=== PATIENT | female | born 1990 | race Caucasian/White ===

== ENCOUNTER 2016-05-10 18:23 | Emergency (ER) | payer OTHER ==
[~2016-05-10] VITALS: Ht 154.9 cm; Wt 46.0 kg
[2016-05-10 18:28] VITALS: TEMP 37.4; Ht 154.9 cm; Wt 46.0 kg
[2016-05-10] MEDS ORDERED: ACETAMINOPHEN 500 MG TAB PO STA (19:18)
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
[2016-05-10 20:11] VITALS: BP 106/70; PULSE 90; O2SAT 100
== END 2016-05-10 20:12 | disposition home or self-care (01) ==
LOC: C.EDD 18:25
DX: R51 Headache (principal); M54.2 Cervicalgia; V47.5XXA Car driver injured in collision with fixed or stationary object in traffic accident, initial encounter; F32.9 Major depressive disorder, single episode, unspecified; F17.210 Nicotine dependence, cigarettes, uncomplicated; Z80.9 Family history of malignant neoplasm, unspecified; Z82.49 Family history of ischemic heart disease and other diseases of the circulatory system

== ENCOUNTER 2017-01-10 16:51 | Emergency (ER) | payer OTHER ==
[~2017-01-10] VITALS: Ht 154.9 cm; Wt 45.4 kg
[2017-01-10 17:01] VITALS: TEMP 36.6; Ht 154.9 cm; Wt 45.4 kg
[2017-01-10] MEDS ORDERED: ACET325T96 PO (17:38)
[2017-01-10] MEDS ORDERED: TRAM-10 PO (18:08)
[2017-01-10] MEDS ORDERED: TRAMADOL HCL 50 MG HOME PACK PO ONE (18:15)
[2017-01-10 18:55] VITALS: BP 121/79; PULSE 74; O2SAT 100
--- NOTE | 2017-01-11 21:18 | EMERGENCY ROOM VISIT NOTE ---
ED Visit Note First contact with patient: 17:52 CHIEF COMPLAINT: I have a really bad toothache. HISTORY OF PRESENT ILLNESS: Ms. Verdugo is a 26-year-old white female who ambulates into the complaining of right maxillary dental pain. She reports a remittent, progressive dental pain for the last 4 days over the right maxillary area. The pain is now steady and severe and radiates to the face. She has been using acetaminophen but has had no relief of her discomfort. Currently she is complaining of pain in the area of teeth 4-6. She rates her discomfort 10/10. Her.is pain does radiate through the teeth. Her pain worsens with chewing and hot and cold foods. She has not identified any alleviating factors related to the pain. She denies any associated symptoms including fevers , chills, sweats, facial swelling, sore throat, difficulty swallowing, voice changes, drooling. REVIEW OF SYSTEMS: As noted above in History of Present Illness. 8 body systems were reviewed with this patient and found to be negative unless noted above otherwise. PMH: (1) section (2) Depression (3) Intrauterine device (IUD) contraception (4) Ovarian cyst . CURRENT MEDICATION: Tylenol. . ALLERGIES TO MEDICATION: Patient denies. SOCIAL HISTORY: Patient feels safe in her home environment; she denies tobacco use. PHYSICAL EXAM: Vital Signs: Date Time Temp Pulse Resp B/P (MAP) Pulse Ox O2 Delivery O2 Flow Rate FiO2 01/10/17 18:55 74 20 121/79 100 Room Air 01/10/17 17:01 36.6 103 20 110/76 98 Room Air General: 26 year-old white female in mild distress due to pain, nontoxic appearing, afebrile and hemodynamically stable. Neurological: Awake, alert and oriented to person, place and time. Answering questions appropriately and following commands. Normal gait. Good hand eye coordination. No focal motor or sensory deficits. Skin: Warm, dry and pink. No soft tissue lesions, rashes, or trauma noted. HEENT: Atraumatic and normocephalic. Oral cavity is moist and pink. Airway is patent. Uvula is midline and no abscesses are seen. Speech is normal. No intraoral trauma is noted. There is no obvious signs of dental decay. No abscesses, erythema or edema identified. No cervical or submandibular lymphadenopathy. ED COURSE: Patient is assessed as noted above. Patient's medication list was reviewed. Patient is educated about her findings and instructed on her treatment plan; she verbalizes understanding and agreement with this plan. CLINIC IMPRESSION: Dental pain. DISPOSITION: Patient discharged home in stable condition; prior to departure she was reassessed and subjectively reported she was feeling the same. PLAN: Comfort measures were discussed including a sliding pain scale of ibuprofen, acetaminophen and Ultram; she was given appropriate precautions for medication use and her name was checked in the state database and no red flags were noted. Patient was encouraged to followup with personal dentist for definitive care and treatment. Patient was encouraged to return the ED for facial swelling or fevers or any new /concerning symptoms.
== END 2017-01-10 19:07 | disposition home or self-care (01) ==
LOC: C.EDB 16:53 → C.EDD 19:07
DX: K08.89 Other specified disorders of teeth and supporting structures (principal); F32.9 Major depressive disorder, single episode, unspecified

== ENCOUNTER 2020-08-22 19:09 | Observation (INO) ==
[2020-08-22] MEDS ORDERED: ONDANSETRON INJ 2 MG/ML 2 ML VIAL IV STA (19:27)
[2020-08-22] MEDS ORDERED: FAMOTIDINE 20MG/5ML IV PUSH IV STA (19:27)
[2020-08-22] MEDS ORDERED: SODIUM CHLORIDE 0.9% 1000ML 1,000 ML IV ONE (19:27)
--- NOTE | 2020-08-22 19:44 | Emergency Department Note ---
History of Present Illness General Chief complaint: Abdominal Pain Stated complaint: GALL BLADDER PAIN Time Seen by Provider: 08/22/20 19:21 Source: patient Mode of arrival: ambulatory Limitations: no limitations History of Present Illness Provider complaint: Abdominal pain Onset (ago): day(s) 5 Location: abdomen Radiation: back Severity: severe Pain Consistency: + constant Maximum Pain Intensity: 10 Current Pain Intensity: 10 Quality: + constant Relieved By: + none Exacerbated By: + eating Associated symptoms: + nausea/vomiting; no chest pain, no cough, no fever/chills and no headaches Treatments prior to arrival: none This is a 29-year-old female presents the emergency department complaining of 5 days of right upper quadrant pain. Patient states on Wednesday when this began she had pain as well as nausea and vomiting. She states she came to the emergency room, had blood work drawn, and was discharged. She states she was told to follow-up with her family doctor. States she did contact them for follow-up and they were going to try and schedule an ultrasound for next week. She states her pain has been constant daily, worse with eating, worse with movement. She denies any recurrent vomiting. No black or bloody stools. Denies fevers or chills. States the only prior abdominal surgery she has had has been 2 C- sections. No recent change in diet or medications otherwise. No recent illness. No known sick contacts or exposure to coronavirus. Pt seen during a time of high acuity and national emergency pandemic while wearing PPE. Home Medications Medication Instructions Recorded Confirmed Type omeprazole 20 mg PO DAILY 08/22/20 08/22/20 History Allergies Allergy/AdvReac Type Severity Reaction Status Date / Time No Known Allergies Allergy Unverified 08/22/20 20:36 Past Med/Surg History Medical History Depression Surgical History Previous section Social History Smoking Status: Never smoker Feels Safe at Home: Yes Review of Systems See HPI for pertinent positives & negatives. and A total of 10 systems reviewed and were otherwise negative Physical Exam Vital Signs Vital Signs - 24 hr 08/22/20 19:13 08/22/20 20:11 08/22/20 20:13 Temperature 36.5 C Temperature Source Temporal Artery Scan Pulse Rate 93 H 65 64 Respiratory Rate 18 24 23 Respiratory Effort / Characteristics Non-Labored Spontaneous Respiratory Depth Normal Blood Pressure 121/69 106/58 L Blood Pressure Mean 86 74 Pulse Oximetry 99 97 Oxygen Delivery Method Room Air Sepsis Recent Fever Within 48 Hours No Sepsis New/Unexplained Change in Mental Status N/A Sepsis Action Taken by Nursing No Action Required 08/22/20 20:30 08/22/20 21:00 08/22/20 21:05 Temperature Temperature Source Pulse Rate 72 74 69 Respiratory Rate 20 18 16 Respiratory Effort / Characteristics Respiratory Depth Blood Pressure 102/68 113/75 113/75 Blood Pressure Mean 79 87 87 Pulse Oximetry 98 98 97 Oxygen Delivery Method Sepsis Recent Fever Within 48 Hours Sepsis New/Unexplained Change in Mental Status Sepsis Action Taken by Nursing 08/22/20 21:30 Temperature Temperature Source Pulse Rate 60 Respiratory Rate 16 Respiratory Effort / Characteristics Respiratory Depth Blood Pressure 104/68 Blood Pressure Mean 80 Pulse Oximetry 96 Oxygen Delivery Method Sepsis Recent Fever Within 48 Hours Sepsis New/Unexplained Change in Mental Status Sepsis Action Taken by Nursing GENERAL: alert, uncomfortable appearing, well nourished, no distress, non-toxic EYE EXAM: normal conjunctiva, PERRL and EOM's grossly intact OROPHARYNX: no exudate, no erythema, lips, buccal mucosa, and tongue normal and mucous membranes are moist NECK: supple, no nuchal rigidity, no adenopathy, non-tender LUNGS: Clear to auscultation. Normal chest wall mechanics, no w/r/r HEART: no murmurs, S1 normal and S2 normal ABDOMEN: abdomen soft, RUQ tenderness with palpation, normo-active bowel sounds, no masses, no rebound or guarding. BACK: Back is symmetrical on inspection and there is no deformity, no midline tenderness, no CVA tenderness. SKIN: no rashes and no bruising UPPER EXTREMITIES: upper extremities are grossly normal. FROM, nml pulses b/l. LOWER EXTREMITIES: No pitting edema. FROM, nml pulses b/l. NEURO EXAM: Normal sensorium, cranial nerves II-XII grossly intact, normal speech, no gross weakness of arms, no gross weakness of legs. Gross sensation intact. Course Course 2049: Patient updated on results. Still having right upper quadrant pain. 2053: Case discussed with Dr. Cr, general surgery. 2121: Dr. Cr has seen and evaluated the patient at bedside. Administered Medications Discontinued Medications Famotidine (Famotidine 20mg/5ml Iv Push) 20 mg IV ONE STA Stop: 08/22/20 19:28 Last Admin: 08/22/20 19:47 Dose: 20 mg Documented by: [id number] Fentanyl Citrate (Fentanyl Citrate 100 Mcg/2 Ml Vial) 50 mcg IV NOW STA Stop: 08/22/20 20:52 Last Admin: 08/22/20 20:59 Dose: 50 mcg Documented by: [id number] Sodium Chloride (Nss 1000ml) 1,000 mls @ 999 mls/hr IV .Q1H1M ONE Stop: 08/22/20 20:27 Last Infusion: 08/22/20 20:49 Dose: 0 mls/hr Documented by: [id number] Admin: 08/22/20 19:46 Dose: 999 mls/hr Documented by: [id number] Acetaminophen (Ofirmev) 1,000 mg in 100 mls @ 400 mls/hr IV NOW STA Stop: 08/22/20 21:05 Last Infusion: 08/22/20 21:13 Dose: 0 mls/hr Documented by: [id number] Admin: 08/22/20 20:58 Dose: 400 mls/hr Documented by: [id number] Ondansetron HCl (Ondansetron Inj 2 Mg/Ml 2 Ml Vial) 4 mg IV NOW STA Stop: 08/22/20 19:28 Last Admin: 08/22/20 19:47 Dose: 4 mg Documented by: [id number] Medical Decision Making Differential Diagnosis Differential diagnoses includes but is not limited to gastritis, peptic ulcer disease, GERD, gallbladder disease, pancreatitis, small bowel obstruction, acute coronary syndrome, pericarditis, ischemic bowel, irritable bowel disease, irritable bowel syndrome, appendicitis, diverticulitis, malignancy, hernia, urinary tract infection, torsion, [/ectopic (if female)], perforation, trauma, infectious. Medical Records Attestation: I reviewed the patient's medical records. Home Medications Current Medication List: was personally reviewed by me Laboratory Data Attestation: I reviewed the patient's lab results. Result diagrams: 08/22/20 19:45 08/22/20 19:45 Lab Results 08/22/20 08/22/2021 Range/Units 19:45 19:45 19:45 WBC 10.78 (4.8-10.8) K/uL RBC 4.42 (4.2-5.4) M/uL Hgb 13.2 (12.0-16.0) g/dL Hct 38.6 (37-47) % MCV 87.3 (80-100) fL MCH 29.9 (25-34) pg MCHC 34.2 (32-36) g/dL RDW Std Deviation 42.6 (36.4-46.3) fL RDW Coeff of Reji 13.2 (11.5-14.5) % Plt Count 360 (130-400) K/uL MPV 10.0 (7.4-10.4) fL Immature Gran % (Auto) 0.1 % Neut % (Auto) 59.3 % Lymph % (Auto) 32.4 % Hettinger % (Auto) 6.5 % Eos % (Auto) 1.4 % Baso % (Auto) 0.3 % Neut # (Auto) 6.40 (1.4-6.5) K/uL Lymph # (Auto) 3.49 H (1.2-3.4) K/uL Hettinger # (Auto) 0.70 H (0.11-0.59) K/uL Eos # (Auto) 0.15 (0-0.5) K/uL Baso # (Auto) 0.03 (0-0.2) K/uL Immature Gran # (Auto) 0.01 (0.00-0.02) K/uL PT (9.0-12.0) Seconds INR (0.9-1.1) Sodium 139 (136-145) mmol/L Potassium 3.7 (3.5-5.1) mmol/L Chloride 107 (98-107) mmol/L Carbon Dioxide 27 (21-32) mmol/L Anion Gap 5.0 (3-11) BUN 16 (7-18) mg/dl Creatinine 0.79 (0.6-1.2) mg/dl Est Cr Clr Drug Dosing 80.0 ml/min Est GFR ( Amer) 118.1 Est GFR (Non-Af Amer) 101.9 BUN/Creatinine Ratio 20.3 H (10-20) Glucose 82 (70-99) mg/dl Calcium 8.9 (8.5-10.1) mg/dl Magnesium 2.2 (1.8-2.4) mg/dl Total Bilirubin 0.6 (0.2-1) mg/dl AST 3 L (15-37) U/L ALT 11 L (12-78) U/L Alkaline Phosphatase 66 (45-117) U/L Troponin I < 0.015 (0-0.045) ng/ml Total Protein 7.3 (6.4-8.2) gm/dl Albumin 3.9 (3.4-5.0) gm/dl Globulin 3.4 (2.5-4.0) gm/dl Albumin/Globulin Ratio 1.1 (0.9-2) Lipase 143 (73-393) U/L HCG, Qual Negative (Negative) COVID-19 Eval Order SARS-CoV-2 (PCR) (Negative) Influenza Type A (PCR) (Neg) Influenza Type B (PCR) (Neg) RSV (RT-PCR) (Neg) 08/22/20 08/22/20 08/22/20 Range/Units 21:05 21:05 Unknown WBC (4.8-10.8) K/uL RBC (4.2-5.4) M/uL Hgb (12.0-16.0) g/dL Hct (37-47) % MCV (80-100) fL MCH (25-34) pg MCHC (32-36) g/dL RDW Std Deviation (36.4-46.3) fL RDW Coeff of Reji (11.5-14.5) % Plt Count (130-400) K/uL MPV (7.4-10.4) fL Immature Gran % (Auto) % Neut % (Auto) % Lymph % (Auto) % Hettinger % (Auto) % Eos % (Auto) % Baso % (Auto) % Neut # (Auto) (1.4-6.5) K/uL Lymph # (Auto) (1.2-3.4) K/uL Hettinger # (Auto) (0.11-0.59) K/uL Eos # (Auto) (0-0.5) K/uL Baso # (Auto) (0-0.2) K/uL Immature Gran # (Auto) (0.00-0.02) K/uL PT 11.1 (9.0-12.0) Seconds INR 1.1 (0.9-1.1) Sodium (136-145) mmol/L Potassium (3.5-5.1) mmol/L Chloride (98-107) mmol/L Carbon Dioxide (21-32) mmol/L Anion Gap (3-11) BUN (7-18) mg/dl Creatinine (0.6-1.2) mg/dl Est Cr Clr Drug Dosing ml/min Est GFR ( Amer) Est GFR (Non-Af Amer) BUN/Creatinine Ratio (10-20) Glucose (70-99) mg/dl Calcium (8.5-10.1) mg/dl Magnesium (1.8-2.4) mg/dl Total Bilirubin (0.2-1) mg/dl AST (15-37) U/L ALT (12-78) U/L Alkaline Phosphatase (45-117) U/L Troponin I (0-0.045) ng/ml Total Protein (6.4-8.2) gm/dl Albumin (3.4-5.0) gm/dl Globulin (2.5-4.0) gm/dl Albumin/Globulin Ratio (0.9-2) Lipase (73-393) U/L HCG, Qual (Negative) COVID-19 Eval Order [facility]FluRsv at [facility] SARS-CoV-2 (PCR) NEGATIVE (Negative) Influenza Type A (PCR) Negative (Neg) Influenza Type B (PCR) Negative (Neg) RSV (RT-PCR) Negative (Neg) Imaging Data Radiologist's Impression: Abdomen Ultrasound 08/22/20 19:27 ULTRASOUND RIGHT UPPER QUADRANT ABDOMEN CLINICAL HISTORY: Right upper quadrant abdominal pain. COMPARISON STUDY: Abdominal CT dated 06/29/2014. TECHNIQUE: Real-time, grayscale, and color flow sonography of the right upper quadrant of the abdomen was performed. Images are reviewed in the transverse and longitudinal planes. FINDINGS: Liver: The liver is normal in size and echotexture. There is no intrahepatic biliary ductal dilatation. The main portal vein is patent. Gallbladder: There are numerous shadowing calcified gallstones. The gallbladder is mildly distended, and the gallbladder wall is thickened measuring up to 5 mm. A sonographic Meeks's sign is reportedly present. No pericholecystic fluid is seen. The common bile duct measures up to 0.5 cm in diameter. Pancreas: Visualized portions of the pancreatic head and body are normal in appearance. The splenic vein is patent. Right kidney: Survey images of the right kidney demonstrate normal size and echotexture. There is no hydronephrosis. Ascites: None. IMPRESSION: 1. Cholelithiasis with a distended and thick-walled gallbladder. A sonographic Meeks's sign is reportedly present. Findings are concerning for acute cholecystitis. Surgical assessment is advised. 2. There is no intra or extrahepatic biliary ductal dilatation. ACT 112: Negative or not required by law. Electronically signed by: Ham Miranda M.D. 08/22/2020 8:42 PM MDM Narrative This is a 29-year-old female who presents due to 5 days of persistent abdominal pain. Patient seen and evaluated initially in the ER on Wednesday with reassuring labs, no imaging was performed. Patient stated pain not improved despite OTC meds. Repeat labs are drawn and sent and patient sent for ultrasound of the right upper quadrant. Ultrasound suggestive of acute cholecystitis, cholelithiasis was noted. No significant leukocytosis, no elevated LFTs or lipase. Patient was afebrile. Pt given meds for pain and nausea while here. VS stable. Discussed the case with general surgery on-call Dr. Cr, he has seen and evaluated the patient in the emergency room. No evidence for acute pancreatitis, ascending cholangitis, choledocholithiasis, bacteremia or sepsis at this time. I do not suspect concurrent PUD. An order was placed for continuous cardiac monitoring. The monitor shows a rate of _64 with _normal sinus rhythm. Impression & Plan Abdominal pain, Acute cholecystitis due to biliary calculus Discharge Plan Visit Data Chief Complaint: Abdominal Pain Stated Complaint: GALL BLADDER PAIN ED Provider: Loren Solorzano Discharge Problem: Abdominal pain, Acute cholecystitis due to biliary calculus Forms Stand Alone Forms: My [employer] Prescriptions Prescriptions: No Action omeprazole 20 mg capsule,delayed release(DR/EC) 20 mg PO DAILY RF: 0 Discharge Problem: Abdominal pain Qualifiers: Abdominal location: right upper quadrant Qualified Code(s): R10.11 - Right upper quadrant pain
[2020-08-22 20:03] LABS: Basophils # (auto) 0.03 K/uL (0-0.2); Basophils % (auto) 0.3 %; Eosinophils # (auto) 0.15 K/uL (0-0.5); Eosinophils % (auto) 1.4 %; Hematocrit (blood only) 38.6 % (37-47); Hemoglobin 13.2 g/dL (12.0-16.0); Immature Granulocytes # (auto) 0.01 K/uL (0.00-0.02); Immature Granulocytes % (auto) 0.1 %; Lymphocytes # (auto) 3.49 K/uL (1.2-3.4); Lymphocytes % (auto) 32.4 %; Mean Corpuscular Hemoglobin 29.9 pg (25-34); Mean Corpuscular Hgb Conc 34.2 g/dL (32-36); Mean Corpuscular Volume 87.3 fL (80-100); Monocytes % (auto) 6.5 %; Neutrophils % (auto) 59.3 %; Platelet Count 360 K/uL (130-400); RDW Coefficient of Variation 13.2 % (11.5-14.5); RDW Standard Deviation 42.6 fL (36.4-46.3); Red Blood Count 4.42 M/uL (4.2-5.4); White Blood Count 10.78 K/uL (4.8-10.8)
[2020-08-22 20:18] LABS: Alanine Aminotransferase 11 U/L (12-78); Albumin Level 3.9 gm/dl (3.4-5.0); Aspartate Aminotransferase 3 U/L (15-37); BUN Creatinine Ratio 20.3 (10-20); Blood Urea Nitrogen 16 mg/dl (7-18); Calcium 8.9 mg/dl (8.5-10.1); Carbon Dioxide 27 mmol/L (21-32); Chloride 107 mmol/L (98-107); Est GFR (African American) 118.1; Est GFR (Non-African American) 101.9; Glucose 82 mg/dl (70-99); Lipase 143 U/L (73-393); Magnesium 2.2 mg/dl (1.8-2.4); Potassium 3.7 mmol/L (3.5-5.1); Sodium 139 mmol/L (136-145)
[2020-08-22 20:23] LABS: Albumin Globulin Ratio 1.1 (0.9-2); Alkaline Phosphatase 66 U/L (45-117); Bilirubin,Total 0.6 mg/dl (0.2-1); Globulin 3.4 gm/dl (2.5-4.0); Total Protein 7.3 gm/dl (6.4-8.2); Troponin I < 0.015 ng/ml (0-0.045)
--- NOTE | 2020-08-22 20:43 | Ultrasound Report ---
ULTRASOUND RIGHT UPPER QUADRANT ABDOMEN CLINICAL HISTORY: Right upper quadrant abdominal pain. COMPARISON STUDY: Abdominal CT dated 06/29/2014. TECHNIQUE: Real-time, grayscale, and color flow sonography of the right upper quadrant of the abdomen was performed. Images are reviewed in the transverse and longitudinal planes. FINDINGS: Liver: The liver is normal in size and echotexture. There is no intrahepatic biliary ductal dilatatio n. The main portal vein is patent. Gallbladder: There are numerous shadowing calcified gallstones. The gallbladder is mildly distended, and the gallbladder wall is thickened measuring up to 5 mm. A sonographic Meeks's sign is reportedly present. No pericholecystic fluid is seen. The common bile duct measures up to 0.5 cm in diameter. Pancreas: Visualized portions of the pancreatic head and body are normal in appearance. The splenic v ein is patent. Right kidney: Survey images of the right kidney demonstrate normal size and echotexture. There is no hydronephrosis. Ascites: None. IMPRESSION: 1. Cholelithiasis with a distended and thick-walled gallbladder. A sonographic Meeks's sign is repor tedly present. Findings are concerning for acute cholecystitis. Surgical assessment is advised. 2. There is no intra or extrahepatic biliary ductal dilatation. ACT 112: Negative or not required by law. Electronically signed by: Ham Miranda M.D. 08/22/2020 8:42 PM
[2020-08-22 20:47] LABS: Pregnancy Test, Serum Negative (Negative)
[2020-08-22] MEDS ORDERED: ACETAMINOPHEN 1,000 MG/100 ML VIAL IV STA (20:51)
[2020-08-22] MEDS ORDERED: fentaNYL citrate 100 MCG/2 ML VIAL IV STA (20:51)
[2020-08-22 21:45] LABS: INR 1.1 (0.9-1.1); Prothrombin Time 11.1 Seconds (9.0-12.0)
--- NOTE | 2020-08-22 21:56 | Surgery Consultation ---
Date of Consultation August 22, 2020 Assessment & Plan (1) Acute cholecystitis due to biliary calculus: pt is a 29 year-old female who presents to ER with 5 days history RUQ pain with nausea and vomiting, IMP: acute cholecystitis, cholelithiasis, Plan, I recommend to admit to hospital, NPO, IV fluid, control pain, iv antibiotic, and to do laparoscopic cholecystectomy, possible open or cholangiogram tomorrow, D/w benefits, risks and alternatives of the surgery, the risks- infection, bleeding, injury CBD, or bowel, incisional hernia, may need ERCP, pt understood, she and his agree with the surgery, I answered all questions, Present on Admission?: Yes History of Present Illness History of Present Illness History of Present Illness General Chief complaint: Abdominal Pain Stated complaint: GALL BLADDER PAIN Time Seen by Provider: 08/22/20 19:21 Source: patient Mode of arrival: ambulatory Limitations: no limitations History of Present Illness Provider complaint: Abdominal pain Onset (ago): day(s) 5 Location: abdomen Radiation: back Severity: severe Pain Consistency: + constant Maximum Pain Intensity: 10 Current Pain Intensity: 10 Quality: + constant Relieved By: + none Exacerbated By: + eating Associated symptoms: + nausea/vomiting; no chest pain, no cough, no fever/chills and no headaches Treatments prior to arrival: none This is a 29-year-old female presents the emergency department complaining of 5 days of right upper quadrant pain. Patient states on Wednesday when this began she had pain as well as nausea and vomiting. She states she came to the emergency room, had blood work drawn, and was discharged. She states she was told to follow-up with her family doctor. States she did contact them for follow-up and they were going to try and schedule an ultrasound for next week. She states her pain has been constant daily, worse with eating, worse with movement. She denies any recurrent vomiting. No black or bloody stools. Denies fevers or chills. States the only prior abdominal surgery she has had has been 2 C- sections. No recent change in diet or medications otherwise. No recent illness. No known sick contacts or exposure to coronavirus. I ( Pauline Cr MD ) got a call for consult acute cholecystitis, I reviewed pt's H/P, labs, U/S study with pt, pt is still have RUQ pain with nausea and vomiting, Pt seen during a time of high acuity and national emergency pandemic while wearing PPE. Home Medications Medication Instructions Recorded Confirmed Type omeprazole 20 mg PO DAILY 08/22/20 08/22/20 History Allergies Allergy/AdvReac Type Severity Reaction Status Date / Time No Known Allergies Allergy Unverified 08/22/20 20:36 Past Med/Surg History Medical History Depression Surgical History Previous section Social History Smoking Status: Never smoker Feels Safe at Home: Yes Review of Systems See HPI for pertinent positives & negatives. and A total of 10 systems reviewed and were otherwise negative Allergies Allergy/AdvReac Type Severity Reaction Status Date / Time No Known Allergies Allergy Unverified 08/22/20 20:36 Home Medications Medication Instructions Recorded Confirmed Type omeprazole 20 mg PO DAILY 08/22/20 08/22/20 History Patient History Medical History Depression Surgical History Previous section Social History Smoking Status: Never smoker Feels Safe at Home: Yes Review of Systems Review of Systems: All systems reviewed & are unremarkable except as noted in HPI & below Constitutional: as per Subjective / HPI Eyes: as per Subjective / HPI Ear, Nose, Mouth, Throat: as per Subjective / HPI Respiratory: as per Subjective / HPI Cardiovascular: as per Subjective / HPI Gastrointestinal: as per Subjective / HPI, + abdominal pain, + nausea and + vomiting Genitourinary: as per Subjective / HPI PID, left ovarian cyst Musculoskeletal: as per Subjective / HPI Integumentary: as per Subjective / HPI Neurologic: as per Subjective / HPI Psychiatric: as per Subjective / HPI Endocrine: as per Subjective / HPI Hematologic / Lymphatic: as per Subjective / HPI Physical Exam Constitutional: WD/WN, vitals as above well developed and well nourished Eyes: PERRL, conjunctivae normal, anicteric sclerae ENMT: external ear and nose normal, oropharynx normal Neck: trachea midline, no thyromegaly Respiratory: normal respiratory effort, lungs clear to auscultation normal respiratory effort Cardiovascular: RRR, no murmur, no edema Rate/Rhythm: regular rate and regular rhythm Gastrointestinal (Abdomen): Percussion/Palpation: + abdomen tender and abdomen soft mild tenderness at RUQ, no rebound pain, no distend, BS + Musculoskeletal: no cyanosis or clubbing, extremities motor strength 5/5 Skin: no rashes, warm and dry Neurologic: awake Psychiatric: Orientation: alert and oriented x 3 Results & Data ([facility]) Vital Signs (Past 12 Hours) Vital Signs Temp Pulse Resp BP Pulse Ox 08/22/20 21:30 60 16 104/68 96 08/22/20 21:05 69 16 113/75 97 08/22/20 21:00 74 18 113/75 98 08/22/20 20:30 72 20 102/68 98 08/22/20 20:13 64 23 08/22/20 20:11 65 24 106/58 L 97 08/22/20 19:13 36.5 C 93 H 18 121/69 99 Laboratory Results Abnormal lab results 08/22/20 08/22/20 Range/Units 19:45 19:45 Lymph # (Auto) 3.49 H (1.2-3.4) K/uL [place] # (Auto) 0.70 H (0.11-0.59) K/uL BUN/Creatinine Ratio 20.3 H (10-20) AST 3 L (15-37) U/L ALT 11 L (12-78) U/L Diagnostic Findings ULTRASOUND RIGHT UPPER QUADRANT ABDOMEN CLINICAL HISTORY: Right upper quadrant abdominal pain. COMPARISON STUDY: Abdominal CT dated 06/29/2014. TECHNIQUE: Real-time, grayscale, and color flow sonography of the right upper quadrant of the abdomen was performed. Images are reviewed in the transverse and longitudinal planes. FINDINGS: Liver: The liver is normal in size and echotexture. There is no intrahepatic biliary ductal dilatation. The main portal vein is patent. Gallbladder: There are numerous shadowing calcified gallstones. The gallbladder is mildly distended, and the gallbladder wall is thickened measuring up to 5 mm. A sonographic Meeks's sign is reportedly present. No pericholecystic fluid is seen. The common bile duct measures up to 0.5 cm in diameter. Pancreas: Visualized portions of the pancreatic head and body are normal in appearance. The splenic vein is patent. Right kidney: Survey images of the right kidney demonstrate normal size and echotexture. There is no hydronephrosis. Ascites: None. IMPRESSION: 1. Cholelithiasis with a distended and thick-walled gallbladder. A sonographic Meeks's sign is reportedly present. Findings are concerning for acute cholecy stitis. Surgical assessment is advised. 2. There is no intra or extrahepatic biliary ductal dilatation.
[2020-08-22 22:00] LABS: Influenza A virus by PCR Negative (Neg); Influenza B virus by PCR Negative (Neg); RSV by PCR Negative (Neg); SARS CoV2 RNA(COVID-19) InHosp NEGATIVE (Negative)
[2020-08-22] MEDS ORDERED: PIPERACILL/TAZOBAC CONSULT ACTIVE PRN (23:02)
[2020-08-22] MEDS ORDERED: HYDROmorphone INJ 0.5 MG/0.5 ML SYR IV PRN (23:02)
[2020-08-22] MEDS ORDERED: oxyCODONE/ACETAMINOPHEN 5mg/325mg TAB PO ONE (23:16)
[2020-08-22] MEDS ORDERED: PIPERACILLIN/TAZOBACTAM 3.375 GM in DEXTROSE 5% 100 ML IV ONE (23:30)
[2020-08-22] MEDS: PANTOprazole 40 MG in SYRINGE 0 ML IV SCH (23:43)
[2020-08-22] MEDS: LACTATED RINGER'S 1,000 ML IV SCH (23:43)
[2020-08-23] MEDS: PIPERACILLIN/TAZOBACTAM 3.375 GM in DEXTROSE 5% 100 ML IV SCH ×3 (05:17→22:21)
[2020-08-23] MEDS: oxyCODONE/ACETAMINOPHEN 5mg/325mg TAB PO PRN ×3 (05:20→21:03)
[2020-08-23 06:21] LABS: Basophils # (auto) 0.04 K/uL (0-0.2); Basophils % (auto) 0.4 %; Eosinophils % (auto) 2.2 %; Hematocrit (blood only) 33.8 % (37-47); Hemoglobin 11.3 g/dL (12.0-16.0); Immature Granulocytes # (auto) 0.02 K/uL (0.00-0.02); Immature Granulocytes % (auto) 0.2 %; Lymphocytes # (auto) 3.08 K/uL (1.2-3.4); Lymphocytes % (auto) 33.4 %; Mean Corpuscular Hemoglobin 29.4 pg (25-34); Mean Corpuscular Hgb Conc 33.4 g/dL (32-36); Mean Corpuscular Volume 87.8 fL (80-100); Mean Platelet Volume 9.8 fL (7.4-10.4); Monocytes # (auto) 0.68 K/uL (0.11-0.59); Monocytes % (auto) 7.4 %; Neutrophils # (auto) 5.21 K/uL (1.4-6.5); Neutrophils % (auto) 56.4 %; Platelet Count 308 K/uL (130-400); RDW Coefficient of Variation 13.2 % (11.5-14.5); RDW Standard Deviation 42.8 fL (36.4-46.3); Red Blood Count 3.85 M/uL (4.2-5.4); White Blood Count 9.23 K/uL (4.8-10.8)
--- NOTE | 2020-08-23 06:59 | History & Physical Bridge Note ---
Date of Service August 23, 2020 History & Physical Bridge Note I have examined the patient, reviewed the History & Physical and in the interval since the performance of the History & Physical I have noted the following changes of clinical significance: no changes noted
[2020-08-23] MEDS ORDERED: ceFAZolin 2000MG 2,000 MG/15 ML SYR IV ONE (07:00)
[2020-08-23] MEDS ORDERED: DEXAMETHASONE SOD INJ 4 MG/ML VIAL ONE (07:02)
[2020-08-23] MEDS ORDERED: MIDAZOLAM HCL 1 MG/ML 2ML VIAL ONE (07:02)
[2020-08-23] MEDS ORDERED: LIDOCAINE HCL 2% 2 ML VIAL/AMP(20MG/ML) INFIL ONE (07:02)
[2020-08-23] MEDS ORDERED: GLYCOPYRROLATE 0.2 MG/ML VIAL ONE (07:02)
[2020-08-23] MEDS ORDERED: NEOSTIGMINE METHYLSULFATE 5 MG/5 ML SYR ONE (07:02)
[2020-08-23] MEDS ORDERED: ONDANSETRON INJ 2 MG/ML 2 ML VIAL ONE (07:02)
[2020-08-23] MEDS ORDERED: fentaNYL citrate 100 MCG/2 ML VIAL ONE (07:02)
[2020-08-23] MEDS ORDERED: PROPOFOL IV EMULSION 10 MG/ML 20 ML VIAL IV ONE (07:02)
[2020-08-23] MEDS ORDERED: BUPIVACAINE 0.5 % 5 MG/1 ML MPF 30ML VIAL ONE (07:06)
[2020-08-23] MEDS ORDERED: LIDOCAINE HCL 1% 20 ML VIAL ONE (07:06)
[2020-08-23] MEDS ORDERED: BACITRACIN OINT 15 GM TUBE ONE (07:06)
[2020-08-23] MEDS ORDERED: ONDANSETRON INJ 2 MG/ML 2 ML VIAL IV PRN ×2 (07:19→11:55)
[2020-08-23] MEDS ORDERED: ATROPINE SULFATE 0.1 MG/ML 10ML SYR IV PRN (07:19)
[2020-08-23] MEDS ORDERED: KETOROLAC 30 MG/ML VIAL IV PRN (07:19)
--- NOTE | 2020-08-23 07:19 | Anesthesiology Consultation ---
Date of Service August 23, 2020 Assessment & Plan (1) Encounter for pre-operative examination: Chart Review Chart Review: Acceptable Risk for Surgery History Surgery Operation Date: 08/23/20 07:15 Proposed Procedures p Laparoscopic Cholecystectomy - Pauline Cr MD Height/Weight Height: 5 ft 1 in Weight: 53.8 kg Allergies Allergy/AdvReac Type Severity Reaction Status Date / Time No Known Allergies Allergy Unverified 08/22/20 20:36 Medications Home Medications Medication Instructions Recorded Confirmed Last Taken omeprazole 20 mg PO DAILY 08/22/20 08/22/20 Unknown Active Medications Generic Name Dose Route Start Last Admin Trade Name Freq PRN Reason Stop Dose Admin Lactated Ringer's 1,000 mls @ 80 mls/hr 08/22/20 23:02 08/23/20 07:15 Lr IV 09/21/20 23:01 0 mls/hr .[id number] ALINA Titration Piperacillin Sod/Tazobactam 115 mls @ 28.75 mls/hr 08/23/20 06:00 08/23/20 07:18 Sod 3.375 gm/ Dextrose IV 09/02/20 05:59 28.8 mls/hr Q8H ALINA Titration Protocol Pantoprazole Sodium 40 mg/ 10 mls @ 5 mls/min 08/22/20 23:02 08/22/20 23:43 Syringe IV 09/21/20 23:01 5 mls/min BID ALINA Administration Oxycodone/Acetaminophen 1 tab 08/22/20 23:02 08/23/20 05:20 Oxycodone/Acetaminophen 5mg/325mg Tab PO 09/05/20 23:01 1 tab Q4H PRN Administration Pain Past Medical History Medical History Depression Past Surgical History Surgical History Previous section Social History Smoking Status: Former smoker Smoking End Date: 05/03/19 Hx Alcohol Use: Yes Alcohol type: beer and wine alcohol intake frequency: a few times a month Hx Substance Use: No substance use type: does not use Physical Exam Vital Signs Last Vital Signs Temp 36.8 C 08/23/20 07:07 Pulse 81 08/23/20 07:07 Resp 16 08/23/20 07:07 BP 111/69 08/23/20 07:07 Pulse Ox 100 08/23/20 07:07 Testing Laboratory Results 08/23/20 06:10 08/22/20 19:45 PT 11.1 Seconds (9.0-12.0) 08/22/20 Unknown INR 1.1 (0.9-1.1) 08/22/20 Unknown
[2020-08-23] MEDS ORDERED: ROCURONIUM BROMIDE 10 MG/ML 5 ML VIAL IV ONE (08:02)
[2020-08-23] MEDS ORDERED: PANTOprazole 40 MG TAB PO SCH (09:00)
--- NOTE | 2020-08-23 09:13 | Post Operative Brief Note ---
Immediate Post Op Note v1 Date of Surgery August 23, 2020 Pre & Post Diagnosis Operation Date: 08/23/20 07:15 Pre-Op Diagnosis: Acute Cholecystitis Post-Op Diagnosis: Acute Cholecystitis I identified the patient and participated in the time-out.: Yes Procedure Operation Date: 08/23/20 07:15 Actual Procedures p Laparoscopic Cholecystectomy(Not Applicable) - Pauline Cr MD Surgeon Pauline Cr MD [employer]person [employer] REYMUNDO Ramos Estimated Blood Loss 10 Findings Consistent with Post-Op Diagnosis significant inflammation on gallbladder wall, thickening edema, Fluids 800ml Specimens gallbladder Anesthesia Type General Complications none Disposition Accompanied Patient To Recovery: Yes Disposition: Recovery Room Overlapping Procedure I was immediately available: during the entire case.
[2020-08-23] MEDS ORDERED: KETOROLAC 30 MG/ML VIAL ONE (09:45)
[2020-08-23] MEDS: fentaNYL citrate 100 MCG/2 ML VIAL IV PRN ×4 (09:55→10:10)
[2020-08-23] MEDS: PANTOprazole 40 MG in SYRINGE 0 ML IV SCH (11:04)
--- NOTE | 2020-08-23 11:51 | Anesthesiology Progress Note ---
Date of Service August 23, 2020 Anesthesia Post Procedure Vital Signs Vital Signs: Temp Pulse Pulse Pulse Pulse Resp BP 08/23/20 11:28 36.4 C L 55 L 16 08/23/20 11:03 36.4 C L 55 L 16 08/23/20 10:30 36.7 C 64 14 08/23/20 10:15 36.3 C L 55 L 14 08/23/20 10:05 49 L 19 08/23/20 09:55 48 L 19 08/23/20 09:45 70 19 08/23/20 09:39 36.2 C L 71 16 08/23/20 07:18 36.9 C 63 18 08/23/20 07:07 36.8 C 81 16 08/22/20 23:19 36.6 C 78 16 08/22/20 22:30 64 16 112/78 08/22/20 22:00 62 20 108/78 08/22/20 21:30 60 16 104/68 08/22/20 21:05 69 16 113/75 08/22/20 21:00 74 18 113/75 08/22/20 20:30 72 20 102/68 08/22/20 20:13 64 23 08/22/20 20:11 65 24 106/58 L 08/22/20 19:13 36.5 C 93 H 18 121/69 BP BP Pulse Ox 08/23/20 11:28 114/72 97 08/23/20 11:03 116/75 98 08/23/20 10:30 113/69 100 08/23/20 10:15 104/65 97 08/23/20 10:05 113/72 100 08/23/20 09:55 119/75 100 08/23/20 09:45 92/78 L 100 08/23/20 09:39 96/71 L 100 08/23/20 07:18 108/67 98 08/23/20 07:07 111/69 100 08/22/20 23:19 109/72 97 08/22/20 22:30 98 08/22/20 22:00 97 08/22/20 21:30 96 08/22/20 21:05 97 08/22/20 21:00 98 08/22/20 20:30 98 08/22/20 20:13 08/22/20 20:11 97 08/22/20 19:13 99 Pain Intensity Abdomen: Pain Intensity: 4 Transfer of Care Handoff Completed per policy Notes Mental Status: alert / awake / arousable Patient Amnestic to Procedure: Yes Nausea / Vomiting: adequately controlled Pain: adequately controlled Airway Patency, RR, SpO2: stable & adequate BP & HR: stable & adequate Hydration State: stable & adequate Anesthetic Complications: no major complications apparent
[2020-08-23] MEDS ORDERED: ACETAMINOPHEN 325 MG TAB PO PRN (11:54)
[2020-08-23] MEDS ORDERED: IBUPROFEN 600 MG TAB PO PRN (11:54)
[2020-08-23] MEDS ORDERED: MoRPHine SULFATE 2 MG/ML CARP IV PRN (11:55)
[2020-08-23] MEDS: LACTATED RINGER'S 1,000 ML IV SCH ×2 (12:01→23:47)
[2020-08-23] MEDS: MoRPHine SULFATE 4 MG/ML 1 ML CARP\\VIAL IV PRN ×3 (14:02→22:35)
--- NOTE | 2020-08-23 15:10 | Operative Report (OR) ---
DATE OF OPERATION: 08/23/2020 PREOPERATIVE DIAGNOSES: Acute cholecystitis, cholelithiasis. POSTOPERATIVE DIAGNOSES: Acute cholecystitis, cholelithiasis. OPERATION: Laparoscopic cholecystectomy. SURGEON: Pauline Cr MD. LEAD MILITARY ANALYST: Mirna Feng PA-C. ANESTHESIA: General. ESTIMATED BLOOD LOSS: About 10 mL. FINDINGS: Acute cholecystitis, cholelithiasis. COMPLICATIONS: None. INDICATIONS FOR THE PROCEDURE: This is a 29-year-old female who was admitted to hospital for acute cholecystitis with cholelithiasis. I recommended to do laparoscopic cholecystectomy, possible open, possible cholangiogram. I did talk to the patient about the benefit, the risk, alternate procedure. I indicated the risks may include but not limited such as bleeding, infection, injury to common bile duct, injury to the bowel, may need the ERCP, bile leak, incisional hernia. The patient understands. She signed informed consent and I answered all questions. DETAILS OF PROCEDURE: After we identified the patient and verified the procedure, we brought the patient to the OR, put the patient in the supine position on the OR table and the patient received SCD on bilateral legs to prevent DVT. Also, patient received 3.375 grams Zosyn IV for prophylactic antibiotic. The patient received general anesthesia without difficulties. Abdomen was prepped and draped in routine sterile fashion. After timeout, I injected the local anesthesia by using 1% lidocaine mixed with 0.5% Marcaine just above the umbilicus. Then I made a small incision just above the umbilical, opened fascia and opened peritoneum under direct vision, put a Mahin trocar in, connected to CO2 to create pneumoperitoneum. Flow rate is 6 liter per minute. Pressure not more than 14 mmHg. Once we got a nice pneumoperitoneum, we put the camera in, looked around the abdomen, shows normal finding on the liver. However, the gallbladder shows significant inflammation on the gallbladder wall, gallbladder wall thickening, edema, confirmed diagnosis of acute cholecystitis. Once confirmed diagnosis, we put another two 5 mm trocar on the right upper quadrant, one 11 trocar on the epigastric area. Once all trocars in, we used the grasper to hold the base of gallbladder, put in the direction to the diaphragm and we used the Bovie to take down the omental adhesions to the gallbladder. Then, we used another grasper to hold the pouch of gallbladder, put a lateral to expunge the triangle of Calot. Cystic duct was identified and mobilized. I put two 10 mm metal clips on the proximal cystic duct, one on the distal cystic duct, then used a scissor for transection of cystic artery. Rechecked, no active bleeding, no bile leak. Cystic artery was identified and mobilized. I put two 10 mm metal clips on the proximal cystic artery, around the distal cystic artery, then used a scissor for transection of cystic artery. Rechecked, no active bleeding. Then we used the Bovie to take down gallbladder from the liver bed. Rechecked and no active bleeding, no bile leak from liver bed. Then we removed gallbladder through the catch bag. Then we reinserted Mahin trocar in, connected to CO2 to create pneumoperitoneum, again looked around the abdomen, no active bleeding, no bile leak from the liver bed. Then we removed all trocar under direct vision. No active bleeding from the trocar sites. Pneumoperitoneum was released. Then we closed the umbilical incision, fascial layer by using 0 Vicryl [id number] x2, closed subcutaneous layer by using 2-0 Vicryl interruptedly, closed skin by using 4-0 Vicryl continuous running, closed the 11 trocar site on the epigastric area, the fascial layer closed by using 0 Vicryl [id number] x2, closed subcutaneous layer by using 2-0 Vicryl interruptedly, closed skin by using 4-0 Vicryl interruptedly, closed another two 5 mm trocars and the skin only by using 4-0 Vicryl. Then, we put the dressing on. The patient tolerated the procedure well. All instrument, needle and sponge count were correct x2 at the end of the case. The patient transferred to recovery room in stable condition. Specimen sent to pathology. After the procedure, I did talk to the patient about the OR finding and the procedure we did. The patient understands and the doctor's assistant, Mirna, was necessary for this procedure. Her role was to hold the camera, retraction and exposure. I attest to the content of the Intraoperative Record and any orders documented therein. Any exception s are noted below.
[2020-08-24] MEDS: MoRPHine SULFATE 4 MG/ML 1 ML CARP\\VIAL IV PRN (02:23)
[2020-08-24] MEDS: PIPERACILLIN/TAZOBACTAM 3.375 GM in DEXTROSE 5% 100 ML IV SCH (05:13)
--- NOTE | 2020-08-24 06:18 | Surgery Progress Note ---
Date of Service August 24, 2020 Assessment & Plan (1) Acute cholecystitis due to biliary calculus: Postop day #1 laparoscopic cholecystectomy: Patient is tolerating clears will consider advancement of her diet today Continue analgesics Continue antiemetics Continue antibiotics in the form of Zosyn while in the hospital Encourage use of incentive spirometer Courage ambulation in the hallway Patient tolerates diet advancement will likely discharge home later today Admission and Anticipated Discharge Date Admission Date: August 22, 2020 Supervising Physician Co-Signing Physician Notes Patient seen and examined, labs reviewed, agree with above. POD #[address] Cr. Doing well, tolerating clears. Pain controlled. Symptoms she had upon arrival are improved. On exam she is afebrile stable vitals. Abdomen soft, appropriately tender to palpation, incisions with dressings in place with minimal strikethrough, no evidence of infection. Labs with slightly elevated WBC postop day #1, normal LFTs. Advance diet to regular, discharge to home today if tolerates. Activity restrictions and wound care i nstructions reviewed. Follow-up with Dr. Simpson as an outpatient. Return precautions given. Subjective Patient is resting in bed. She notes incisional pain most notably near her periumbilical incision. She denies any nausea vomiting. Since her surgery she has been taking clear liquids which she is tolerating well and she feels as though her appetite is improving. She denies any fevers, shakes, chills. She has not had a bowel movement since surgery. Physical Exam Gastrointestinal (Abdomen): Abdomen is soft and nondistended with positive bowel sounds. Patient is 4 laparoscopic incisions consistent with cholecystectomy and her incisions are clean dry and intact. She does have pain with palpation near her incisions which is greatest near the periumbilical incision. Results & Data ([facility]) Vital Signs (Past 12 Hours) Vital Signs Temp Pulse Resp BP Pulse Ox 08/24/20 03:51 36.7 C 59 L 14 100/62 98 08/23/20 23:19 37.1 C 68 14 106/69 96 08/23/20 19:19 36.8 C 55 L 14 108/68 98 PG Care Time/CCT Total # of Minutes Spent Total Time Spent with Patient: Total time spent is greater than 50% in coordination of care (as documented) at patient's floor/unit and/or counseling patient: Coding Level of Care Code None Diagnoses Acute cholecystitis due to biliary calculus K80.00
[2020-08-24 06:45] LABS: Basophils # (auto) 0.01 K/uL (0-0.2); Basophils % (auto) 0.1 %; Eosinophils # (auto) 0.02 K/uL (0-0.5); Eosinophils % (auto) 0.2 %; Hematocrit (blood only) 32.1 % (37-47); Hemoglobin 10.7 g/dL (12.0-16.0); Immature Granulocytes # (auto) 0.02 K/uL (0.00-0.02); Immature Granulocytes % (auto) 0.2 %; Lymphocytes # (auto) 2.66 K/uL (1.2-3.4); Lymphocytes % (auto) 20.5 %; Mean Corpuscular Hemoglobin 29.3 pg (25-34); Mean Corpuscular Hgb Conc 33.3 g/dL (32-36); Mean Corpuscular Volume 87.9 fL (80-100); Mean Platelet Volume 10.3 fL (7.4-10.4); Monocytes # (auto) 0.91 K/uL (0.11-0.59); Neutrophils # (auto) 9.36 K/uL (1.4-6.5); Platelet Count 309 K/uL (130-400); RDW Coefficient of Variation 13.2 % (11.5-14.5); Red Blood Count 3.65 M/uL (4.2-5.4); White Blood Count 12.98 K/uL (4.8-10.8)
[2020-08-24] MEDS: oxyCODONE/ACETAMINOPHEN 5mg/325mg TAB PO PRN ×2 (07:27→13:16)
[2020-08-24 07:35] LABS: Albumin Globulin Ratio 1.2 (0.9-2); BUN Creatinine Ratio 7.9 (10-20); Bilirubin,Total 0.7 mg/dl (0.2-1); Calcium 8.4 mg/dl (8.5-10.1); Creatinine Clr Calc Pharmacy 92.9 ml/min; Globulin 2.5 gm/dl (2.5-4.0); Potassium 3.7 mmol/L (3.5-5.1); Total Protein 5.5 gm/dl (6.4-8.2)
[2020-08-24] MEDS: LACTATED RINGER'S 1,000 ML IV SCH (13:15)
--- NOTE | 2020-08-26 08:09 | Discharge Summary ---
Date of Service August 26, 2020 Admission HPI Per Admitting Provider This is a 29-year-old female presents the emergency department complaining of 5 days of right upper quadrant pain. Patient states on Wednesday when this began she had pain as well as nausea and vomiting. She states she came to the emergency room, had blood work drawn, and was discharged. She states she was told to follow-up with her family doctor. States she did contact them for follow-up and they were going to try and schedule an ultrasound for next week. She states her pain has been constant daily, worse with eating, worse with movement. She denies any recurrent vomiting. No black or bloody stools. Denies fevers or chills. States the only prior abdominal surgery she has had has been 2 C- sections. No recent change in diet or medications otherwise. No recent illness. No known sick contacts or exposure to coronavirus. I ( Pauline Cr MD ) got a call for consult acute cholecystitis, I reviewed pt's H/P, labs, U/S study with pt, pt is still have RUQ pain with nausea and vomiting, Principal Diagnosis Acute calculous cholecystitis Discharge Data Allergies Allergy/AdvReac Type Severity Reaction Status Date / Time No Known Allergies Allergy Unverified 08/22/20 20:36 Consultations 08/22/20 21:31 ED Decision to Admit Stat Procedures Performed Operation Date: 08/23/20 07:15 Actual Procedures p Laparoscopic Cholecystectomy(Not Applicable) - Pauline Cr MD Ordered Studies 08/22/20 19:27 US abdomen limited Stat Hospital Course (1) Acute cholecystitis due to biliary calculus: Patient was admitted to hospital from emergency department and scheduled for cholecystectomy the next morning. Started on IV Zosyn, IV Dilaudid prn pain, IV Zofran prn nausea, IV fluids and kept npo. Patient tolerated procedure well and was transferred to recovery and then medical/surgical floor for postop care. Diet advanced to clear liquids, activity as tolerated, scds, IV Zosyn was continued, and IV Fluids. POD # 1 afebrile, vitals stable, postop pain at incisions controlled and tolerated clear liquids. Diet was advanced to regular diet which was tolerated and she was discharged home in stable condition. Total Time Total Time Spent Total Time Spent (In Minutes): 10 Total Time Includes: Discharge Planning and Medication Reconciliation Discharge Plan Discharge Items Patient Disposition: Home - Self-Care Reason For Visit: ACUTE CHOLECYSTITIS Discharge Diagnosis: Acute cholecystitis Activity: Per Instructions section Lifting: No more than 10 pounds Non-emergency contact: Surgeon Call non-emergency contact if: you have any medication questions, your pain is not controlled, your pain is worsening, you have a fever, your temperature is above 101, your wound has increased redness, your wound has increased drainage and your wound pain has increased Follow-up/Referrals: Iban Last MD [Primary Care Provider] - Pauline Cr MD [Physician] - Diet: Regular Addtl Attending Provider Instructions: Post-Surgical ~Discharge Instructions Activity Recommendations: - lifting limitation: (25 pounds for 4 weeks), - exercise/sex/sports limit: (nonstrenuous for 2 weeks), - driving or machine use limit: (none for 1 week), - Shower/bathe limit: (august shower beginning Wednesday) Diet: - Resume previous diet SPECIAL CARE INSTRUCTIONS: - May shower on Wednesday. Sponge bath and wash hair in meantime. On Wednesday, remove outer dressings and shower. Let water run over area and pat dry. - Leave steri strips on for one week and then remove. - Call the surgeon's office with any questions or concerns - - (ex. temperature higher than 101 degrees F, excessive bleeding or pain). MEDICATIONS: - Resume previous medications unless instructed otherwise by your surgeon. - May alternate extra strength Tylenol and Ibuprofen as needed for mild pain -650 mg Tylenol every 6 hours as needed - Ibuprofen 600 mg every 6 hours as needed (take with food) - Percocet 1 every 4 hours, as needed for moderate to severe pain - Recommend taking stool softener daily-twice a day while taking narcotic pain medication to prevent constipation. (i.e [id number] Colace) FOLLOW UP VISIT: - If not already scheduled, please call the office to schedule a two week follow-up appointment. Office number Pending Studies at Discharge: Yes Stand-Alone Forms: [facility], Smoking Cessation Medications and DC Order Prescriptions: New oxycodone-acetaminophen [Percocet] 5-325 mg tablet 1 tab PO Q4H PRN (Reason: pain) Qty: 10 RF: 0 Continued omeprazole 20 mg capsule,delayed release(DR/EC) 20 mg PO DAILY RF: 0 Discharge Orders: Discharge Order (Routine); Ordered 08/24/20 Ordered By: Antoine Wolf Admission Data Admit Date/Time: 08/22/20 21:40 Attending Provider: Pauline Cr Admit Provider: Pauline Cr Primary Care Provider: Iban Last Other Providers: Pauline Cr Other Interventions: Discharge Summary Assessment (RN) Last Done: 08/24/20 12:02
== END 2020-08-24 14:27 | disposition home or self-care (01) ==
LOC: ED 19:09 → 3N 21:40 → INTOOBSV 21:40 → 3N 22:44